=== PATIENT | male | born 1945 | race Caucasian/White ===

== ENCOUNTER 2025-05-30 03:17 | Inpatient (IN) | payer OTHER ==
[2025-05-30 05:53] VITALS: BMI 18.7
[2025-05-30] MEDS: Ipratropium Bromide 2.5 ml Neb NEB SCH (06:15)
[2025-05-30 06:35] LABS: Carbamazepine-Tegretol 1.8 ug/mL (4.0-12.0)
[2025-05-30 06:36] LABS: ALT (SGPT) 10 U/L (Less than 45); AST (SGOT) 34 U/L (11-34); Albumin 2.4 g/dL (3.1-4.5); Alkaline Phosphatase 214 U/L (40-110); Anion Gap 17 mmol/L (10-20); BUN (Urea Nitrogen) 9 mg/dL (8.4-25.7); Bilirubin, Total 0.2 mg/dL (0.3-1.2); Calc. Creatinine Clearance 115 mL/min (70-130); Calcium 8.1 mg/dL (7.8-10.44); Carbon Dioxide 25 mmol/L (23-31); Chloride 91 mmol/L (98-107); Globulin 3.7 g/dL (2.4-3.5); Glucose 84 mg/dL (83-110); Potassium 3.6 mmol/L (3.5-5.1); Sodium 129 mmol/L (136-145)
[2025-05-30 07:50] LABS: Osmolality, Serum 260 mOsm/kg (280-301)
[2025-05-30] MEDS: Carvedilol 3.125 MG TAB PO SCH (08:38)
[2025-05-30] MEDS: Aspirin 81 mg Enteric Coated Tablet PO SCH (08:38)
[2025-05-30] MEDS: Enoxaparin 40 MG (0.4 mL) SYRINGE SC SCH (08:39)
[2025-05-30] MEDS: Cyanocobalamin (Vitamin B-12) 1,000 MCG TAB PO SCH (08:39)
[2025-05-30] MEDS: Folic Acid 1 MG TAB PO SCH (08:39)
[2025-05-30] MEDS: Thiamine 100 MG TAB PO SCH (08:40)
[2025-05-30] MEDS: Phenytoin Extended Release 100 MG CAP PO SCH (08:40)
[2025-05-30 10:06] LABS: Osmolality, Urine 475 mOsm/kg (50-1200)
[2025-05-30] MEDS: PNEUMOC 20-VAL CONJ-DIP CRM/PF 0.5 ML SYRINGE IM ONE (11:03)
[2025-05-30] MEDS: levETIRAcetam 500 MG TAB PO SCH (20:41)
[2025-05-30] MEDS: Ketorolac Tromethamine 30 MG (1 mL) VIAL IVP SCH (21:02)
[2025-05-30] MEDS: Magnesium 2 GM/50 ML(in water) 2 GM in Premix 1 BAG IVPB SCH (21:04)
[2025-05-30] MEDS: Ondansetron PF 4 MG/2 ML Vial IVP PRN (23:32)
[2025-05-31 04:38] LABS: #Basophils Less than 0.03 10x3/uL (0.0-0.2); #Eosinophils Less than 0.03 10x3/uL (0.0-0.7); #Monocytes 0.55 10x3/uL (0.11-0.59); #Neutrophils 8.87 10x3/uL (1.40-6.50); %Basophils 0.1 % (0.0-1.0); %Eosinophils 0.0 % (0.0-10.0); %Lymphocytes 4.6 % (21.0-51.0); %Monocytes 5.5 % (0.0-10.0); %Neutrophils 89.1 % (42.0-75.0); Hematocrit 37.3 % (42.0-52.0); Hemoglobin 12.0 g/dL (14.0-18.0); Mean Corpuscular Hemoglobin 28.0 pg (27.0-31.0); Mean Corpuscular Volume 86.9 fL (78.0-98.0); Platelet Count 440 10x3/uL (130-400); Red Blood Cell (RBC) Count 4.29 mill/uL (4.70-6.10); White Blood Cell (WBC) Count 9.96 10x3/uL (4.8-10.8)
[2025-05-31 05:09] LABS: Anion Gap 9 mmol/L (10-20); BUN (Urea Nitrogen) 6 mg/dL (8.4-25.7); Calc. Creatinine Clearance 124 mL/min (70-130); Calcium 8.3 mg/dL (7.8-10.44); Carbon Dioxide 29 mmol/L (23-31); Chloride 93 mmol/L (98-107); Glucose 136 mg/dL (83-110); Potassium 3.6 mmol/L (3.5-5.1); Sodium 127 mmol/L (136-145)
[2025-05-31] MEDS: Levothyroxine 150 MCG TAB PO SCH (05:52)
[2025-05-31 08:23] LABS: Magnesium 2.3 mg/dL (1.6-2.6)
[2025-05-31] MEDS: Acetaminophen 325 MG TAB PO PRN (09:57)
[2025-05-31] MEDS: Ketorolac Tromethamine 30 MG (1 mL) VIAL IVP SCH (10:14)
[2025-05-31] MEDS: Lactulose 20 GM (30 mL) UDCUP PO SCH (10:14)
[2025-05-31] MEDS: Senokot S 8.6-50 MG TAB PO SCH (20:43)
[2025-06-01 04:46] LABS: #Basophils 0.03 10x3/uL (0.0-0.2); #Eosinophils Less than 0.03 10x3/uL (0.0-0.7); #Monocytes 0.62 10x3/uL (0.11-0.59); #Neutrophils 14.10 10x3/uL (1.40-6.50); %Basophils 0.2 % (0.0-1.0); %Eosinophils 0.1 % (0.0-10.0); %Lymphocytes 3.8 % (21.0-51.0); %Monocytes 4.0 % (0.0-10.0); %Neutrophils 91.4 % (42.0-75.0); Hematocrit 44.7 % (42.0-52.0); Hemoglobin 14.4 g/dL (14.0-18.0); Mean Corpuscular Hemoglobin 28.1 pg (27.0-31.0); Mean Corpuscular Volume 87.3 fL (78.0-98.0); Platelet Count 405 10x3/uL (130-400); Red Blood Cell (RBC) Count 5.12 mill/uL (4.70-6.10); White Blood Cell (WBC) Count 15.43 10x3/uL (4.8-10.8)
[2025-06-01 05:11] LABS: Anion Gap 15 mmol/L (10-20); BUN (Urea Nitrogen) 6 mg/dL (8.4-25.7); Calc. Creatinine Clearance 133 mL/min (70-130); Calcium 8.5 mg/dL (7.8-10.44); Carbon Dioxide 22 mmol/L (23-31); Chloride 98 mmol/L (98-107); Glucose 111 mg/dL (83-110); Potassium 4.2 mmol/L (3.5-5.1); Sodium 131 mmol/L (136-145)
[2025-06-01] MEDS: Lactulose 20 GM (30 mL) UDCUP PO SCH (08:54)
[2025-06-01 14:39] VITALS: BMI 18.7
[2025-06-01] MEDS: Nitroglycerin 0.4 MG TAB (25 Tab Bottle) SL PRN (20:51)
[2025-06-02 05:04] LABS: #Basophils Less than 0.03 10x3/uL (0.0-0.2); #Eosinophils Less than 0.03 10x3/uL (0.0-0.7); #Monocytes 0.95 10x3/uL (0.11-0.59); #Neutrophils 8.53 10x3/uL (1.40-6.50); %Basophils 0.2 % (0.0-1.0); %Eosinophils 0.2 % (0.0-10.0); %Lymphocytes 9.7 % (21.0-51.0); %Monocytes 9.0 % (0.0-10.0); %Neutrophils 80.4 % (42.0-75.0); Hematocrit 41.6 % (42.0-52.0); Hemoglobin 13.0 g/dL (14.0-18.0); Mean Corpuscular Hemoglobin 27.8 pg (27.0-31.0); Mean Corpuscular Volume 88.9 fL (78.0-98.0); Platelet Count 492 10x3/uL (130-400); Red Blood Cell (RBC) Count 4.68 mill/uL (4.70-6.10); White Blood Cell (WBC) Count 10.60 10x3/uL (4.8-10.8)
[2025-06-02 05:19] LABS: Anion Gap 15 mmol/L (10-20); BUN (Urea Nitrogen) 10 mg/dL (8.4-25.7); Calc. Creatinine Clearance 127 mL/min (70-130); Calcium 8.7 mg/dL (7.8-10.44); Carbon Dioxide 27 mmol/L (23-31); Chloride 95 mmol/L (98-107); Glucose 93 mg/dL (83-110); Potassium 3.8 mmol/L (3.5-5.1); Sodium 133 mmol/L (136-145)
[2025-06-02] MEDS: carBAMazepine 200 MG TAB PO SCH (06:29)
[2025-06-02] MEDS ORDERED: Iopamidol 370 76% 100 ML VIAL ONE (13:24)
[2025-06-02] MEDS ORDERED: hydrALAZINE 20 MG/ML VIAL SLOW IVP PRN (18:08)
[2025-06-02] MEDS: levETIRAcetam 500 MG (5 mL) VIAL SLOW IVP SCH (21:35)
[2025-06-02 22:49] LABS: Bacteria/HPF None Seen HPF (None Seen); RBC/HPF None Seen HPF (0-3); WBC/HPF 0-3 HPF (0-3)
[2025-06-03] MEDS ORDERED: Glycopyrrolate 0.4 MG/ 2 ML VIAL SLOW IVP PRN (12:48)
[2025-06-03] MEDS: levETIRAcetam 500 MG (5 mL) VIAL SLOW IVP SCH ×2 (13:36→20:51)
[2025-06-10 08:45] VITALS: BP 66/34; TEMP 98
== END 2025-06-10 12:20 | disposition expired | DRG 177 ==
LOC: EEVIPCON 04:28 → 2NO 04:28 → OBSVTOIN 05:34 → T4-A 06-04 09:54
PROVIDERS: ADMIT Internal Medicine; ATTEND Internal Medicine
DX: J69.0 Pneumonitis due to inhalation of food and vomit (principal); E43 Unspecified severe protein-calorie malnutrition; J44.1 Chronic obstructive pulmonary disease with (acute) exacerbation; J44.0 Chronic obstructive pulmonary disease with (acute) lower respiratory infection; J96.11 Chronic respiratory failure with hypoxia; E87.1 Hypo-osmolality and hyponatremia; Z68.1 Body mass index [BMI] 19.9 or less, adult; Z66 Do not resuscitate; Z51.5 Encounter for palliative care; E86.0 Dehydration; J38.7 Other diseases of larynx; E03.9 Hypothyroidism, unspecified; Z99.81 Dependence on supplemental oxygen; I48.91 Unspecified atrial fibrillation; G40.909 Epilepsy, unspecified, not intractable, without status epilepticus; Z79.899 Other long term (current) drug therapy; Z79.890 Hormone replacement therapy
CPT/HCPCS: 36000; 36415; 70491; 71045; 74230; 80048; 80053; 80156; 80185; 81015; 82533; 82805; 83605; 83690; 83735; 83880; 83930; 83935; 84300; 84443; 84484; 84550; 85025; 85610; 85730; 86850; 86900; 86901; 90471; 90677; 93005; 93010; 94640; 94660; 94760; 96374; G0009; J1650; J1885; J1953; J2060; J2270; J2919; J3475; J7030; J7644; Q2009; Q9967